=== PATIENT | female | born 1995 | race Caucasian/White ===

== ENCOUNTER → 2020-12-12 12:24 | Outpatient (CLI) | payer OTHER, SELFPAY ==
--- NOTE | 2020-12-12 12:30 | US_ITS ---
STUDY: THYROID ULTRASOUND REASON FOR EXAM: Female, 25 years old. Dysphagia TECHNIQUE: Ultrasound evaluation of the thyroid was performed with real-time and static harvey-scale imaging. COMPARISON: None. FINDINGS: RIGHT LOBE: The right lobe of the thyroid gland measures 5.3 x 1.1 x 1.5 cm. There is a homogeneous echotexture. There are no demonstrated solid, cystic or complex lesions. LEFT LOBE: The left lobe of the thyroid gland measures 5.2 x 1.2 x 1.4 cm. There is a homogeneous echotexture. There are no demonstrated solid, cystic or complex lesions. ISTHMUS: The isthmus measures 2.0 mm. The regional lymph nodes are normal. US/Thyroid IMPRESSION: Borderline enlarged thyroid, no discrete lesions or hyperemia Electronically Signed: Jerry Flowers MD at 13:08 EDT , Service support ,
== END ==
PROVIDERS: PCP Nurse Practitioner; Referring Provider Nurse Practitioner; Visit Provider Nurse Practitioner
DX: R13.10 Dysphagia, unspecified (principal)
CPT/HCPCS: 76536

== ENCOUNTER → 2021-02-22 13:00 | Outpatient (CLI) | payer OTHER, SELFPAY ==
--- NOTE | 2021-02-22 13:59 | SP.MBSS_ITS ---
Modified Barium Swallow - Patient Information Study Date: 02/22/21 Study Time: 13:00 Direct Billable Minutes: 120 Total Minutes procedure & reportin Diagnosis: dysphagia R13.10 Referring Physician: Ricco Lau Reason for Referral: Pt. referred for objective assessment of swallow function due to pt. complaints of difficulty initiating swallow with food textures Medical History: Pt. reports no significant medical history. She stated she feels anxious at times and has seen a therapist due to this. She had a thyroid study done with results showing a slightly enlarged thyroid. Doctor recommended an increase in her iodine intake. Current Diet Ordered: regular Dentition: WNL, Natural Teeth Mental Status: WNL Respiratory Status: Oxygenating on Room Air - Study Findings Consistencies: Thin Liquid, [place] Thick Liquid, Honey Thick Liquid, Pudding, Cookie - Penetration-Aspiration Scale Penetration-Aspiration Scale: OBJECTIVE ASSESSMENT OF SWALLOW FUNCTION (QUANTITATIVE ? PER TRIAL): PENETRATION / ASPIRATION SCALE (PONCE): 1 = does not enter airway 2 = enters airway/above vocal folds/ejected 3 = enters airway/above vocal folds/not ejected 4 = enters airway/contacts vocal folds/ejected 5 = enters airway/contacts vocal folds/not ejected 6 = enters airway/below vocal folds/ejected 7 = enters airway/below vocal folds/not ejected despite effort 8 = enters airway/below vocal folds/no effort - Penetration-Aspiration Scale Score Thin Liquid via teaspoon Result: 1= does not enter airway Thin Liquid via teaspoon Trial 2 Result: 1= does not enter airway Thin Liquid via small single sip from cup Result: 1= does not enter airway Thin Liquid via sequential sips from cup Result: 1= does not enter airway [place] Thick Liquid via small single sip from cup Result: 1= does not enter airway Honey Thick Liquid via small single sip from cup Result: 1= does not enter airway Pudding via teaspoon Result: 1= does not enter airway Cookie via teaspoon Result: 1= does not enter airway Thin Liquid via single sip from straw Result: 1= does not enter airway Thin Liquid via sequential sips from straw Result: 1= does not enter airway Pudding via teaspoon Trial 2 Result: 1= does not enter airway - Oral Phase Labial Seal: No Labial Escape Tongue Control During Bolus Hold: Cohesive bolus between tongue to palatal seal Bolus Preparation/Mastication: Timely and efficient chewing and mashing Bolus Transport/Lingual Motion: Delayed initiation of tongue motion - pudding texture trial 1 Oral Residue: Residue collection on oral structures - oral residue cleared with second swallow - Pharyngeal Phase Initiation of Pharyngeal Swallow: Bolus head in pyriforms - with thin liquid sequential cup sips, single straw sip Soft Palate Elevation: No bolus between soft palate and pharyngeal wall Laryngeal Elevation: Comp. Superior move thyroid cart w/comp. apprx arytenoid cart-epig pet Anterior Hyoid Excursion: Complete anterior movement Epiglottic Movement: Complete inversion Laryngeal Vestibule Closure at Height of Swallow: Complete; no air/contrast in laryngeal vestibule Pharyngeal Stripping Wave: Present - diminished - pharyngeal stripping wave was present with all textures except for initial swallow on 1st pudding trial Pharyngoesophageal Segment Opening: Complete distension and complete duration; no obstruction of flow Tongue Base Retraction: Narrow column of contrast between tongue base & post. pharyngeal wall Pharyngeal Residue: Collection of residue within or on pharyngeal structures - pudding trial 1 initial swallow - Esophageal Phase Esophageal Clearance: Complete clearance - Diagnosis/Impression Diagnosis: mild oropharyngeal dysphagia Impression: Pt. oral phase is marked by decreased swallow initiation and moderate oral residue which resulted in pooling in the vallecula and pyriform sinus and a need for a second swallow. Pt. pharyngeal phase is marked by decreased pharyngeal stripping wave with pudding texture x 1 resulting in pharyngeal residue. Pt. initiated second swallow independently and cleared oral and pharyngeal residue. No penetration or aspiration was observed during this study. Pt. reported she becomes anxious when a swallow becomes delayed which tends to exacerbate her swallowing difficulty. - Recommendations Diet: Regular Textures Comment: Pause and take a couple deep breathes between bites of food and sips if having difficulty initiating swallow and take a sip of drink Compensatory Strategies: Small Bites, Multiple Swallows, Alternate bites/solids and sips/liquids Supervision: Distant Supervision Recommend Repeat Modified Barium Swallow: No Need for Skilled Speech Therapy Services: No Education Completed: 1. Described result of evaluation. - Status Active ST Patient: Not Active - Contact Information [facility]:: [address] [place], [place] [address] Radha Delgado M.A., CCC-DARREN [email or web address]
== END ==
PROVIDERS: PCP Nurse Practitioner; Referring Provider Otolaryngology; Visit Provider Otolaryngology
DX: R13.10 Dysphagia, unspecified (principal)
CPT/HCPCS: 74230